=== PATIENT | female | born 1995 ===

== ENCOUNTER 2019-01-19 18:48 | Emergency (ER) | payer BC ==
--- NOTE | 2019-01-19 19:24 | Emergency Department Report ---
Blank Doc - Documentation Documentation: 23-year-old female that presents with pelvic pain and vaginal bleeding. This initial assessment/diagnostic orders/clinical plan/treatment(s) is/are subject to change based on patient's health status, clinical progression and re- assessment by fellow clinical providers in the ED. Further treatment and workup at subsequent clinical providers discretion. Patient/guardians urged not to elope from the ED as their condition may be serious if not clinically assessed and managed. Initial orders include: 1- Patient sent to [facility] for further evaluation and treatment 2- UA
[2019-01-19 19:25] VITALS: BP 130/78
[2019-01-19 21:01] LABS: HCG Qualitative,Urine Negative (Negative)
[2019-01-19 21:04] LABS: Bilirubin,Urine NEG (Negative); Blood,Urine LG (Negative); Color,Urine Yellow (Yellow); Mucus,Urine 1+ /HPF; Urobilinogen,Urine < 2.0 mg/dL (<2.0)
[2019-01-19 21:05] LABS: RBC,Urine > 182.0 /HPF (0.0-6.0); WBC,Urine > 182.0 /HPF (0.0-6.0)
[2019-01-19] MEDS ORDERED: PHENAZOPYRIDINE 200 MG TAB PO ONE (21:28)
[2019-01-19] MEDS ORDERED: cephALEXin 500 MG CAP PO ONE (21:28)
[2019-01-19] MEDS ORDERED: HYDROcodone/ACETAMINOPHEN 5-325 MG TAB PO ONE (21:28)
[2019-01-19] MEDS ORDERED: KETOROLAC 30 MG/1 ML INJ IM ONE (21:29)
--- NOTE | 2019-01-19 22:23 | Emergency Department Report ---
ED Female HPI - General Chief complaint: Vaginal Bleeding Stated complaint: ABD PAIN Time Seen by Provider: 01/19/19 19:23 Source: patient Mode of arrival: Ambulatory Limitations: No Limitations - History of Present Illness Initial comments: Patient is a nulliparous 23-year-old female who presents to the ED with no past medical presents to the ED, and of acute onset persistent severe suprapubic pressure, urinary frequency and urgency, dysuria and hematuria for the last 12 hours. Patient states that the symptoms got worse in the last 6 h ours and she could most at work because of dysuria and worsening suprapubic pressure. Patient denies dizziness, fever, chills, nausea, vomiting, diarrhea, vaginal discharge, low back pain, headache, cough, sore throat or chest pain. MD Complaint: dysuria, pelvic pain, other (urinary frequency and urgency) -: Sudden, hour(s) (12) Location: suprapubic Radiation: non-radiating Severity: severe Severity scale (0 -10): 7 Quality: sharp, burning Consistency: intermittent Improves with: none Worsens with: urination Are you Now?: No Last Menstrual Period: 12/10/18 EDC: 09/16/19 Associated Symptoms: denies other symptoms, abdominal pain (suprapubic), loss of appetite, dysuria, hematuria. denies: vaginal discharge, vaginal bleeding, nausea/vomiting, fever/chills, headaches, rash, seizure, shortness of breath, syncope, weakness - Related Data Sexually active: Yes : 0 Para: 0 A: 0 Previous Rx's Medication Instructions Recorded Last Taken Type Acetaminophen/Codeine [Tylenol 1 tab PO Q6H PRN #12 tab 01/19/19 Unknown Rx /Codeine # 3 tab] Ibuprofen [Motrin] 600 mg PO Q8H PRN #20 tablet 01/19/19 Unknown Rx Ondansetron [Zofran Odt] 4 mg PO Q6HR PRN #12 tab.rapdis 01/19/19 Unknown Rx Phenazopyridine [Pyridium] 100 mg PO Q8H PRN #24 tab 01/19/19 Unknown Rx cephALEXin [Keflex] 500 mg PO Q6HR #40 capsule 01/19/19 Unknown Rx Allergies Allergy/AdvReac Type Severity Reaction Status Date / Time No Known Allergies Allergy Unverified 01/19/19 18:50 ED Review of Systems ROS: Stated complaint: ABD PAIN Other details as noted in HPI Constitutional: denies: chills, fever Eyes: denies: eye pain, eye discharge, vision change ENT: denies: ear pain, throat pain Respiratory: denies: cough, shortness of breath, wheezing Cardiovascular: denies: chest pain, palpitations Endocrine: no symptoms reported Gastrointestinal: abdominal pain (suprapubic). denies: nausea, vomiting, diarrhea Genitourinary: urgency, dysuria, frequency, hematuria. denies: discharge, abnormal menses, dyspareunia Musculoskeletal: denies: back pain, joint swelling, arthralgia Skin: denies: rash, lesions Neurological: denies: headache, weakness, paresthesias Psychiatric: denies: anxiety, depression Hematological/Lymphatic: denies: easy bleeding, easy bruising ED Past Medical Hx - Past Medical History Previous Medical History?: No - Surgical History Past Surgical History?: No - Social History Smoking Status: Never Smoker Substance Use Type: None - Medications Home Medications: Home Medications Medication Instructions Recorded Confirmed Last Taken Type Acetaminophen/Codeine [Tylenol 1 tab PO Q6H PRN #12 tab 01/19/19 Unknown Rx /Codeine # 3 tab] Ibuprofen [Motrin] 600 mg PO Q8H PRN #20 tablet 01/19/19 Unknown Rx Ondansetron [Zofran Odt] 4 mg PO Q6HR PRN #12 tab.rapdis 01/19/19 Unknown Rx Phenazopyridine [Pyridium] 100 mg PO Q8H PRN #24 tab 01/19/19 Unknown Rx cephALEXin [Keflex] 500 mg PO Q6HR #40 capsule 01/19/19 Unknown Rx ED Physical Exam - General Limitations: No Limitations General appearance: alert, in no apparent distress - Head Head exam: Present: atraumatic, normocephalic, normal inspection - Eye Eye exam: Present: normal appearance, PERRL, EOMI Pupils: Present: normal accommodation - ENT ENT exam: Present: normal exam, normal orophraynx, mucous membranes moist, TM's normal bilaterally, normal external ear exam - Neck Neck exam: Present: normal inspection, full ROM - Respiratory Respiratory exam: Present: normal lung sounds bilaterally. Absent: respiratory distress, wheezes, rales, rhonchi, chest wall tenderness, accessory muscle use, decreased breath sounds - Cardiovascular Cardiovascular Exam: Present: regular rate, normal rhythm, normal heart sounds. Absent: systolic murmur, diastolic murmur, rubs, gallop - GI/Abdominal GI/Abdominal exam: Present: soft, tenderness (mildly tender suprapubic area, no guarding), normal bowel sounds. Absent: guarding, rebound, hyperactive bowel sounds, organomegaly - Extremities Exam Extremities exam: Present: normal inspection, full ROM, normal capillary refill - Back Exam Back exam: Present: normal inspection, full ROM. Absent: tenderness, CVA tenderness (R), CVA tenderness (L), muscle spasm, paraspinal tenderness, vertebral tenderness - Neurological Exam Neurological exam: Present: alert, oriented X3, CN II-XII intact, normal gait, reflexes normal - Psychiatric Psychiatric exam: Present: normal affect, normal mood - Skin Skin exam: Present: warm, dry, intact, normal color. Absent: rash ED Course Vital Signs 01/19/19 01/19/19 19:23 21:42 Temperature 97.2 F L Pulse Rate 94 H Respiratory 18 16 Rate Blood Pressure 130/78 O2 Sat by Pulse 100 Oximetry ED Medical Decision Making - Medical Decision Making This is a 23-year-old female who presented to the ED with dysuria, urinary frequency and urgency, and suprapubic pressure for 12 hours. In the ED, patient is alert and oriented 3 and is not in distress. Urinalysis shows significant urinary tract infection with hematuria consistent with acute cystitis. Patient was treated in the ED with antibiotics and pain medications, and was discharged home on antibiotics and pain medications and advised to follow-up with [employer] physician or primary care physician in 7-10 days for reevaluation or return to the ED immediately if symptoms get worse. - Differential Diagnosis UTI; Hematuria; STD Critical care attestation.: If time is entered above; I have spent that time in minutes in the direct care of this critically ill patient, excluding procedure time. ED Disposition Clinical Impression: Acute urinary tract infection Disposition: TO HOME OR SELFCARE Is pt being admited?: No Does the pt Need Aspirin: No Condition: Stable Instructions: Urinary Tract Infection in Women (ED) Additional Instructions: Take medications with food, drink plenty of fluids and follow-up with your primary care physician in 7-10 days for reevaluation. Return to the ED immediately if symptoms get worse. Prescriptions: cephALEXin [Keflex] 500 mg PO Q6HR #40 capsule Ibuprofen [Motrin] 600 mg PO Q8H PRN #20 tablet PRN Reason: Pain Phenazopyridine [Pyridium] 100 mg PO Q8H PRN #24 tab PRN Reason: dysuria Acetaminophen/Codeine [Tylenol /Codeine # 3 tab] 1 tab PO Q6H PRN #12 tab PRN Reason: Pain , Severe (7-10) Ondansetron [Zofran Odt] 4 mg PO Q6HR PRN #12 tab.rapdis PRN Reason: Nausea Referrals: PRIMARY CARE, [Primary Care Provider] - 3-5 Days Time of Disposition: 22:23 Print Language: [id number]
== END 2019-01-19 22:39 | disposition home or self-care (01) ==
LOC: ED 18:48
DX: N39.0 Urinary tract infection, site not specified (principal); Z79.899 Other long term (current) drug therapy
CPT/HCPCS: 81001; 81025; 96372; 99283; J1885

== ENCOUNTER 2020-01-15 14:05 | Emergency (ER) | payer BC ==
[2020-01-15 14:24] VITALS: BP 119/69
== END 2020-01-15 15:20 | disposition left against medical advice (07) ==
LOC: ED 14:05
DX: R07.89 Other chest pain (principal); Z53.21 Procedure and treatment not carried out due to patient leaving prior to being seen by health care provider
CPT/HCPCS: 93005